=== PATIENT | male | born 2000 | race Caucasian/White ===

== ENCOUNTER 2024-08-03 14:08 | Emergency (ER) | payer OTHER, BC, SELFPAY ==
--- OUTSIDE RECORDS SUMMARY | 2024-08-03 14:10 | XMS_ITS | Clinical Summary ---
Author Organization [facility] Address [facility] [place] [address] Care Team Providers Care Web Press Operator Helper Offset Name Role Phone Dk Caro MD Unavailable [phone] Pcp, No Primary Care Provider Unavailabl e Allergies No known active allergies Medications CHEWABLE MULTI VITAMIN TAB 1 tab daily 0 04/16/2008 Activ e naproxen (NAPROSYN) 250 mg tabletIndication s:Sprain of left ankle, unspecified ligament, initial encounter,Sprain of left knee, unspecified ligament, initial encounter Take 1 tablet by mouth 2 times daily with meals. 60 tablet 10/04/2017 Active hydrOXYzine HCL (ATARAX) 25 mg tabletIndication s:Episodic lightheadedness, Palpitations Take 1 Tablet (25 mg) by mouth every 6 hours if needed for Anxiety. 25 Tablet 09/04/2020 Active Active Problems Problem Noted Date Diagnosed Date Abdominal pain 03/06/2013 Immunizations Immunization Administration Dates Next Due DTaP 12/07/2007, 8,10/29/2003,08/06,2002,2002,2002 ,2002,2002 DTaP-HIB (TriHIBIT) 10/29/2003 POaQ-AnwD-LDI (Pediarix) 2002 HIB PRP-T (ActHIB,Hiberix) 10/29/2003,,2002,07/18 HPV 9 (Gardasil 9) 03/12/2020 Hepatitis A (Peds) 01/03/2015,12/07/2007, 008 Hepatitis B (Peds) 04/27/2003,2002, 003 Hepatitis B, Unspecified 04/27/2003,10/15,2002,07/11,2002 Hib Conjugate, Unspecified 08/07/2003,,2002,07/11 Inactivated Polio Vaccine 11/01/2007,,2002,07/18 Influenza A (H1N1), Inactivated 05/22/2009,04/02,03/21/2009 Influenza A (H1N1), Inactiva greg (Age >=3 Years) 04/18/2009 Influenza Virus, Unspecified 02/28/2013,02/21/20 09,03/10/2006 Influenza, IIV3 (Age >=3 years) 05/03/2008,04/05 Influenza, IIV4 02/11/2016 Influenza, IIV4 (=>6mos) MDV 03/12/2020 Influenza,LAIV3 Live Intrana fabiana (Flumist) 02/28/2013 MENINGOCOCCAL VACCINE 2 VIAL 2MO-55YO (MENVEO) 01/03/2015 MMR 11/01/2007, 5,05/22/2004,10/28,05/22/2003 Meningococcal Vaccine (Menactra) 03/12/2020 Pneumococcal conj 7-Valent (Prevnar 7) 3,2002,2002 Polio Virus, Unspecified 08/07/2003,10/15,2002,07/11 Tdap 01/18/2015,01/03/2015 Varicella Vaccine 05/22/2004,10/29/2003,05/22/19 04 Family History Medical History Relation Name Comments ADD / ADHD Brother Hypertension Father Heart attack Maternal Grandfather Good Health Mother complex regiona l pain syndrome Heart attack Paternal Grandfather Relation Name Status Comments Brother Alive Daughter Alive Father Alive Half-Brother Alive Maternal Grandfather Alive Maternal Grandmother Alive Mother Alive Paternal Grandfather Alive Paternal Grandmother Alive Social History Tobacco Use Types Packs/Day Years Used Date Smoking Tobacco: Never Smokeless Tobacco: Never Tobacco Cessation:Counseling Given: Yes Comments:no exposure Alcohol Use Standard Drinks/Week Comments No 0 (1 standard drink = 0.6 oz pur e alcohol) PHQ-2 Answer Date Recorded PHQ-2 TOTAL SCORE 0 09/04/2020 Social Connections Answer Date Recorded Frequency of Communication with Friends and Fami ly Not on file 2021 Financial Resource Strain Answer Date R ecorded Difficulty of Paying Living Expenses Not on file 2021 Difficulty of Paying Living Expenses Not on file 2021 Sex and Gender Information Value Date Recorded Sex Assigned at Not on file 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 Gender Identity Not on file Sexual Orientation Not on file Occupation Industry Job Start Date Job End Date Not on file Not on file Not on file Not on file Obstetrics History Last Filed Vital Signs Vital Sign Reading Time Taken Comments Blood Pressure 119/76 08/25/2021 12:53 PM CDT Pulse 80 08/25/2021 12:53 PM CDT Temperature 36.8 C (98.3 F) 09/04/2020 10:54 AM CDT Respiratory Rate 18 10/07/2017 4:45 PM CDT Oxygen Saturation 96% 08/25/2021 12:53 PM CDT Inhaled Oxygen Concentration - - Weight 57.4 kg (126 lb 9.6 oz) 09/04/2020 10:54 AM CDT Height 171.7 cm (5' 7.6) 09/04/2020 10:54 AM CD T Body Mass Index 19.48 09/04/2020 10:54 AM CDT Plan of Treatment Health Maintenance Due Date Last Done Comments HIV for age 15-65 2017 HPV series for age 9-26 (2 - Male 3-dose series) 04/09/2020 03/12/2020 Hepatitis C screening for age 18-79 2020 BMI (ht and wt on same day) for age 18+ 09/04/2021 09/04/2020 Depression screening for age 12+ 09/04/2021 09/04/2020, 10/04/2017, 05/01/2016 COVID-19 vaccine series ( season) 2024 09/29/2020 Influenza Vaccine (#1) 2024 0, 02/11/2016, 02/28/2013, Additional history exists Tetanus booster 01/18/2025 01/18/2015, 01/03/2015 Pneumococcal series for age 6-49 Aged Out 2002, 2002, 2002 No longer eligible based on patient's age to complete this topic Tdap Completed 01/18/2015, 01/03/2015 Insurance BLUE CROSS OF NON-OH-ITS Care Teams Web Press Operator Helper Offset Relationship Specialty Start Date End Date Pcp, No . PCP - General 08/25/21 Dk Caro MD [address] [facility] [address] [place] [address] Urology Surgery - Pediatric Urology 11/05/11
[2024-08-03 14:16] VITALS: BP 133/76; PULSE 94; RESP 18; TEMP 37.4; O2SAT 97; BMI 24.8
--- NOTE | 2024-08-03 16:46 | CRLHL7_ITS ---
For Patients: As a result of the Cures Act, medical imaging exams and procedure reports are released immediately into your electronic medical record. You may view this report before your referring provider. If you have questions, please contact your health care provider. INDICATION: Back pain. TECHNIQUE: Thoracic spine 3 view. COMPARISON: None. FINDINGS: Bones: Alignment is normal. No displaced fractures or significant bone lesions. Joints: Disc spaces and facets are unremarkable. Soft tissues: Unremarkable. Dictated by Bill Coombs MD @ 08/03/2024 5:30:31 PM (Electronically Signed)
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
--- OUTSIDE RECORDS SUMMARY | 2024-08-03 17:04 | XMS_ITS | Clinical Summary ---
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 PCP - General 08/25/21 Dk Caro MD [address] [facility] [address] [place] [address] Urology Surgery - Pediatric Urology 11/05/11
[2024-08-03 17:41] VITALS: BP 137/93; PULSE 81; RESP 18; TEMP 37.2; O2SAT 96
== END 2024-08-03 17:40 | disposition home or self-care (01) ==
PROVIDERS: Emergency Provider Emergency Medicine Emergency Medical Services
DX: S16.1XXA Strain of muscle, fascia and tendon at neck level, initial encounter (principal); V43.52XA Car driver injured in collision with other type car in traffic accident, initial encounter
CPT/HCPCS: 72070; 99283; 99284